=== PATIENT | female | born 1945 | race Caucasian/White ===

== ENCOUNTER 2016-10-28 12:53 | Observation (INO) | payer MEDICARE, MEDICAID ==
[2016-10-28] MEDS ORDERED: NORMAL SALINE 250 ML IV PRN ×4 (13:13→18:57)
--- NOTE | 2016-10-28 13:13 | ER Document Report ---
ED Medical Screen (RME) - General Chief Complaint: Anemia Stated Complaint: BLOOD TRANSFUSION Notes: This 71-year-old patient sent from her oncologist's office to get a blood transfusion for hemoglobin of 5.1 I have greeted and performed a rapid initial assessment of this patient. A comprehensive ED assessment and evaluation of the patient, analysis of test results and completion of the medical decision making process will be conducted by additional ED providers. TRAVEL OUTSIDE OF THE [place] IN LAST 30 DAYS: No - Related Data Allergies/Adverse Reactions: Heparin Analogues [Heparin Agents] Allergy (Verified 10/28/16 12:56) latex [Latex] Allergy (Verified 10/28/16 12:56) Sulfa (Sulfonamide Antibiotics) Allergy (Verified 10/28/16 12:56) Past Medical History - Past Medical History Cardiac Medical History: Reports: Hx Congestive Heart Failure, Hx Coronary Artery Disease, Hx Heart Attack - x2, stents x6, Hx Hypercholesterolemia, Hx Hypertension Pulmonary Medical History: Reports: Hx Bronchitis, Hx COPD Renal/ Medical History: Reports: Hx Kidney Stones. Denies: Hx Peritoneal Dialysis GI Medical History: Reports: Hx Gastroesophageal Reflux Disease Musculoskeltal Medical History: Reports Hx Arthritis Psychiatric Medical History: Denies: Hx Depression Past Surgical History: Reports: Hx Abdominal Surgery - GIB fixation x2, Hx Appendectomy, Hx Cardiac Catheterization, Hx Cardiac Surgery - CABG, Hx Coronary Artery Bypass Graft, Hx Coronary Stent, Hx Vascular Surgery - 7 stents - Immunizations Immunizations up to date: No Hx Diphtheria, Pertussis, Tetanus Vaccination: No Physical Exam - Vital signs Vitals: Temp Pulse Resp BP Pulse Ox 98.4 F 91 16 126/63 H 95 10/28/16 12:57 10/28/16 12:57 10/28/16 12:57 10/28/16 12:57 10/28/16 12:57 Course - Vital Signs Vital signs: Temp Pulse Resp BP Pulse Ox 98.4 F 91 16 126/63 H 95 10/28/16 12:57 10/28/16 12:57 10/28/16 12:57 10/28/16 12:57 10/28/16 12:57
[2016-10-28 14:04] LABS: ABSOLUTE EOSINOPHILS # (AUTO) 0.1 10^3/uL (0.0-0.6); ABSOLUTE LYMPHOCYTES (AUTO) 0.5 10^3/uL (0.5-4.7); ABSOLUTE MONOCYTES (AUTO) 0.5 10^3/uL (0.1-1.4); ABSOLUTE NEUT (AUTO) 3.6 10^3/uL (1.7-8.2); BASOPHILS % (AUTO) 0.7 % (0-2); EOSINOPHILS % (AUTO) 1.8 % (0-6); HEMATOCRIT 17.9 % (36.0-47.0); HGB HCT DIFFERENCE -1.1; LYMPHOCYTES % (AUTO) 11.6 % (13-45); MEAN CORPUSCULAR HEMOGLOBIN 27.3 pg (27.0-33.4); MEAN CORPUSCULAR HGB CONC 31.2 g/dL (32.0-36.0); MEAN CORPUSCULAR VOLUME 88 fl (80-97); MONOCYTES % (AUTO) 10.6 % (3-13); RED BLOOD COUNT 2.05 10^6/uL (3.72-5.28); RED CELL DISTRIBUTION WIDTH 20.1 % (11.5-14.0); SEGMENTED NEUTROPHILS % (AUTO) 75.3 % (42-78); WHITE BLOOD COUNT 4.7 10^3/uL (4.0-10.5)
[2016-10-28 14:16] LABS: ALANINE AMINOTRANSFERASE 22 U/L (9-52); ALBUMIN 3.4 g/dL (3.5-5.0); ALKALINE PHOSPHATASE 89 U/L (38-126); ANION GAP 12 (5-19); ASPARTATE AMINO TRANSFERASE 21 U/L (14-36); BILIRUBIN,DIRECT 0.1 mg/dL (0.0-0.4); BILIRUBIN,TOTAL 0.3 mg/dL (0.2-1.3); BLOOD UREA NITROGEN 59 mg/dL (7-20); CARBON DIOXIDE 27 mmol/L (22-30); CHLORIDE 99 mmol/L (98-107); CREATININE RESULT 2.04 mg/dL (0.52-1.25); GLUCOSE 104 mg/dL (75-110); POTASSIUM 5.1 mmol/L (3.6-5.0); SODIUM 137.8 mmol/L (137-145); TOTAL PROTEIN 6.4 g/dL (6.3-8.2)
[2016-10-28 14:18] LABS: HEMOGLOBIN 5.6 g/dL (12.0-15.5)
--- NOTE | 2016-10-28 14:40 | ER Document Report ---
ED General <MONET DOCKERY - Last Filed: 10/28/16 17:56> - General Time seen by provider: 14:45 Mode of Arrival: Ambulatory Information source: Patient, Relative - spouse TRAVEL OUTSIDE OF THE [place] IN LAST 30 DAYS: No - HPI Onset: Other - see HPI note Similar symptoms previously: No Recently seen / treated by doctor: No <CHARLY TEJEDA - Last Filed: 10/28/16 22:57> - General Chief Complaint: Anemia Stated Complaint: BLOOD TRANSFUSION Notes: Patient is a 71-year-old female presenting to emergency Department for a blood transfusion. Patient has a history of GAVE's syndrome. Patient has received blood transfusions at this facility in the past as well as [facility]. Patient has been states this patient is transfusion dependent, and her last transfusion was about 5 weeks ago. Patient denies any nausea, vomiting, diarrhea, or recent falls. Patient has a history of CHF and COPD. Patient does not use oxygen all the time, but does have oxygen as well as nebulizer treatments at home to use as needed. Patient sees Dr. Zaidi. Patient's primary care physician is Dr. John Wooldridge. (CHARLY TEJEDA) - Related Data Allergies/Adverse Reactions: Heparin Analogues [Heparin Agents] Allergy (Verified 10/28/16 12:56) latex [Latex] Allergy (Verified 10/28/16 12:56) Sulfa (Sulfonamide Antibiotics) Allergy (Verified 10/28/16 12:56) Past Medical History - General Information source: Patient, Relative - spouse - Social History Smoking Status: Current Every Day Smoker Frequency of alcohol use: None Drug Abuse: None Family History: CAD, Hypertension Patient has suicidal ideation: No Patient has homicidal ideation: No - Past Medical History Cardiac Medical History: Reports: Hx Congestive Heart Failure, Hx Coronary Artery Disease, Hx Heart Attack - x2, stents x6, Hx Hypercholesterolemia, Hx Hypertension Pulmonary Medical History: Reports: Hx Bronchitis, Hx COPD Renal/ Medical History: Reports: Hx Kidney Stones GI Medical History: Reports: Hx Gastroesophageal Reflux Disease Musculoskeltal Medical History: Reports Hx Arthritis Past Surgical History: Reports: Hx Abdominal Surgery - GIB fixation x2, Hx Appendectomy, Hx Cardiac Catheterization, Hx Cardiac Surgery - CABG, Hx Coronary Artery Bypass Graft, Hx Coronary Stent, Hx Vascular Surgery - 7 stents - Immunizations Immunizations up to date: No Hx Diphtheria, Pertussis, Tetanus Vaccination: No Hx Pneumococcal Vaccination: 04/25/15 <CHARLY TEJEDA - Last Filed: 10/28/16 22:57> Review of Systems - Review of Systems Constitutional: See HPI EENT: No symptoms reported Cardiovascular: No symptoms reported Respiratory: No symptoms reported Gastrointestinal: No symptoms reported Genitourinary: No symptoms reported Female Genitourinary: No symptoms reported Musculoskeletal: No symptoms reported Skin: No symptoms reported Hematologic/Lymphatic: No symptoms reported Neurological/Psychological: See HPI -: Yes All other systems reviewed and negative <CHARLY TEJEDA - Last Filed: 10/28/16 22:57> Physical Exam <SARKISMONET - Last Filed: 10/28/16 17:56> - Vital signs Interpretation: Normal - General General appearance: Alert, Other - patient is very somulent and drowsy In distress: Mild - HEENT Head: Normocephalic, Atraumatic Eyes: Normal Pupils: PERRL Mucous membranes: Moist - Respiratory Respiratory status: No respiratory distress Chest status: Nontender Breath sounds: Normal Chest palpation: Normal - Cardiovascular Rhythm: Regular, Tachycardia Heart sounds: Normal auscultation Murmur: No - Abdominal Inspection: Normal Distension: Other - protuberant abdomen Bowel sounds: Normal Tenderness: Nontender Organomegaly: No organomegaly - Back Back: Normal, Nontender - Extremities General upper extremity: Normal inspection, Normal ROM, Normal strength General lower extremity: Normal inspection, Edema - 2+ pitting edema bilaterally which is baseline for the patient; Right leg has slightly more edema than the left, Normal ROM, Normal strength - Neurological Neuro grossly intact: Yes Cognition: Normal Orientation: AAOx4 [place] Coma Scale Eye Opening: Spontaneous Jeff Coma Scale Verbal: Oriented Jeff Coma Scale Motor: Obeys Commands [place] Coma Scale Total: 15 Speech: Normal - Psychological Associated symptoms: Normal affect, Normal mood - Skin Skin Temperature: Warm Skin Moisture: Dry <CHARLY TEJEDA - Last Filed: 10/28/16 22:57> - Vital signs Vitals: Temp Pulse Resp BP Pulse Ox 98.4 F 91 16 126/63 H 95 10/28/16 12:57 10/28/16 12:57 10/28/16 12:57 10/28/16 12:57 10/28/16 12:57 Course - Laboratory Result Diagrams: 10/28/16 13:45 10/28/16 13:45 <MONET DOCKERY - Last Filed: 10/28/16 17:56> - Laboratory Result Diagrams: 10/28/16 13:45 10/28/16 13:45 - Consults Dr. Johnson Time consulted: 17:55 <CHARLY TEJEDA - Last Filed: 10/28/16 22:57> - Re-evaluation Re-evalutation: 10/28/16 17:57 I personally performed the services described in the documentation, reviewed and edited the documentation which was dictated to my scribe in my presence, and it accurately records my words and actions. Patient presents emergency department from Dr. 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 She also has chronic pain for which she seen and treated for for that. She was had an endoscopy done 2-3 weeks ago at [facility] for active bleeding at that time her hemoglobin was 7 they chose not to transfer transfuse her she was postictal follow-up with Dr. Mata's office sooner but just got there today which point they alecia blood for hemoglobin of 5.1. She is tachycardic but not hypotensive has any effect the pain medication in her system which her states is baseline for her no other altered mental status responds appropriately on examination no acute active bleeding abdominal pain or tenderness spoke with the hospitalist transfusion his ensuing and she is being admitted for observation and further assessment. (MONET DOCKERY) - Vital Signs Vital signs: Temp Pulse Resp BP Pulse Ox 98.0 F 98 18 148/59 H 98 10/28/16 21:40 10/28/16 21:40 10/28/16 21:40 10/28/16 21:40 10/28/16 21:40 - Laboratory Laboratory results interpreted by me: 10/28/16 10/28/16 10/28/16 13:45 13:45 13:45 RBC 2.05 L Hgb 5.6 L Hct 17.9 L MCHC 31.2 L RDW 20.1 H Lymphocytes % 11.6 L Potassium 5.1 H BUN 59 H Creatinine 2.04 H Est GFR ( Amer) 29 L Est GFR (Non-Af Amer) 24 L Albumin 3.4 L Crossmatch See Detail - Consults Dr. Johnson Reason for consultation: 10/28/16 17:[address] Johnson for possible admission; patient will be admitted. (CHARLY TEJEDA) Discharge - Discharge Admitting Provider: Hospitalist Unit Admitted: Telemetry <MONET DOCKERY - Last Filed: 10/28/16 17:56> <CHARLY TEJEDA - Last Filed: 10/28/16 22:57> - Discharge Clinical Impression: anemia requiring transfusion Condition: Stable Disposition: ADMITTED OBSERVATION Scribe Documentation - Scribe Written by Scribe:: Charly Tejeda 10/28/16 18:12 acting as scribe for :: Sarkis <CHARLY TEJEDA - Last Filed: 10/28/16 22:57>
[2016-10-28] MEDS ORDERED: IPRATROPIUM/ALBUTEROL 0.5-2.5 MG/3 ML AMPUL NEB PRN (18:19)
[2016-10-28] MEDS ORDERED: ACETAMINOPHEN 325 MG TABLET PO PRN (18:19)
[2016-10-28] MEDS ORDERED: OXYCODONE-ACETAMINOPHEN 5-325 MG TABLET PO PRN (18:19)
[2016-10-28] MEDS ORDERED: ONDANSETRON HCL INJ/PF 4 MG/2 ML SDV IV PRN (18:19)
[2016-10-28] MEDS ORDERED: ONDANSETRON 4 MG TAB.RAPDIS PO PRN (18:19)
[2016-10-28] MEDS ORDERED: NITROGLYCERIN 0.4 MG/TAB 25 TAB/BOTTLE SL PRN (18:27)
--- NOTE | 2016-10-28 18:45 | PDOC H&P ---
History of Present Illness Admission Date/PCP: 10/28/16 18:04 MAEGAN PAIGE MD Patient complains of: Anemia. 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 She has a hemoglobin of 5.1. Patient has been transfusion dependent for years because of her chronic blood loss related to this. The patient reports that she does have dyspnea on exertion but denies any chest pain. She has a history of coronary artery disease as well as diastolic dysfunction. The patient reports that she has had some intermittent melanotic stools but none currently. She was last seen by her gastroneurologist 2 weeks ago in [place] and had an EGD at that time. The patient denies having any abdominal pain. She denies any orthopnea or PND. She is admitted for transfusion. Past Medical History Cardiac Medical History: Reports: Atrial Fibrillation, Congestive Heart Failure , Coronary Artery Disease, Myocardial Infarction - x2, stents x6, Hyperlipidema , Hypertension Pulmonary Medical History: Reports: Bronchitis, Chronic Obstructive Pulmonary Disease (COPD) EENT Medical History: Reports: None Neurological Medical History: Reports: None Endocrine Medical History: Reports: None Renal/ Medical History: Reports: Chronic Kidney Disease Malignancy Medical History: Reports: None GI Medical History: Reports: Gastroesophageal Reflux Disease, Other - Gastric antral vascular ectasia (GAVE) syndrome Musculoskeltal Medical History: Reports: Arthritis Psychiatric Medical History: Denies: Depression Hematology: Reports: Anemia, Bleeding Tendencies Infectious Medical History: Reports: None Past Surgical History Past Surgical History: Reports: Appendectomy, Cardiac Catheterization, Coronary Artery Bypass Graft, Coronary Stent, Vascular Surgery - 7 stents Social History Information Source: Patient Lives with: Spouse/Significant other Smoking Status: Current Every Day Smoker Frequency of Alcohol Use: None Hx Recreational Drug Use: No Drugs: None Hx Prescription Drug Abuse: No - Advance Directive Resuscitation Status: Do Not Resuscitate - Discussed with the patient and she reports that she requests to be a DO NOT RESUSCITATE. Surrogate healthcare decision maker:: Family History Family History: CAD, Hypertension Family History: Mother at age 71 with coronary artery disease. Father at age 29 in a coal mining accident Parental Family History Reviewed: Yes Children Family History Reviewed: No Sibling(s) Family History Reviewed.: No Medication/Allergy Home Medications: Aspirin [Ecotrin] 81 mg PO DAILY 03/14/15 Ferrous Sulfate [Iron] 325 mg PO BID 12/08/15 Hydrocodone Bit/Acetaminophen [Hydrocodon-Acetaminophn 10-325] 1 tab PO QIDP PRN 12/08/15 Isosorbide Mononitrate [Isosorbide Mononitrate ER] 60 mg PO BID 12/08/15 Metoprolol Tartrate 25 mg PO BID 12/08/15 Pantoprazole Sodium 40 mg PO BID 12/08/15 Rosuvastatin Calcium [Crestor 20 mg Tablet] 20 mg PO DAILY 12/08/15 Zolpidem Tartrate [Ambien] 10 mg PO HSP PRN 12/08/15 Benzonatate 1 cap PO TID 12/12/15 Dexlansoprazole [Dexilant 60 mg Capsule] 1 cap PO DAILY 12/12/15 Albuterol Sulfate [Albuterol Sulfate 2.5mg/3 mL] 2.5 mg IH Q6 PRN 12/16/15 Albuterol Sulfate [Proair Respiclick] 90 mcg IH Q6 PRN 12/16/15 Furosemide 80 mg PO QAM 12/16/15 Nitroglycerin [Nitrostat 0.4 mg (1/150 Gr) Tabs 25/Bottle] 25 tab SL PRN PRN Ondansetron HCl [Zofran 4 mg Tablet] 1 tab PO Q6 PRN 12/16/15 Diltiazem HCl [Cardizem Cd 120 mg Capsule] 120 mg PO DAILY #30 cap.sr.24h Ergocalciferol (Vitamin D2) [Drisdol 50,000 unit (1.25MG) Capsule] 50,000 unit PO Valente@1000 #10 capsule 12/21/15 Furosemide [Lasix 40 mg Tablet] 40 mg PO BID #60 tablet 12/21/15 Gabapentin [Neurontin] 600 mg PO BID #0 12/21/15 Metolazone [Zaroxolyn 2.5 mg Tablet] 2.5 mg PO DAILY #30 tablet 12/21/15 Metoprolol Succinate [Toprol Xl 25 mg Tab.sr] 25 mg PO Q12 #60 tab.sr.24h Oxycodone HCl [Oxy-Ir 5 mg Tablet] 5 mg PO Q4H PRN #15 tablet 04/03/16 Allergies/Adverse Reactions: Heparin Analogues [Heparin Agents] Allergy (Verified 10/28/16 12:56) latex [Latex] Allergy (Verified 10/28/16 12:56) Sulfa (Sulfonamide Antibiotics) Allergy (Verified 10/28/16 12:56) Review of Systems Constitutional: ABSENT: chills, fever(s), headache(s), weight gain, weight loss Eyes: ABSENT: visual disturbances Ears: ABSENT: hearing changes Cardiovascular: PRESENT: dyspnea on exertion, edema, palpitations. ABSENT: chest pain, orthropnea Respiratory: PRESENT: dyspnea. ABSENT: cough, hemoptysis, sputum Gastrointestinal: PRESENT: melena. ABSENT: abdominal pain, coffee ground emesis , constipation, dysphagia, heartburn, nausea, vomiting Musculoskeletal: ABSENT: joint swelling Integumentary: ABSENT: rash, wounds Neurological: ABSENT: abnormal gait, abnormal speech, confusion, dizziness, focal weakness, syncope Psychiatric: ABSENT: anxiety, depression Physical Exam Vital Signs: Temp Pulse Resp BP Pulse Ox 98.3 F 95 18 123/54 L 95 10/28/16 18:01 10/28/16 16:10 10/28/16 18:01 10/28/16 18:01 10/28/16 18:01 General appearance: PRESENT: no acute distress, well-developed, well-nourished Head exam: PRESENT: atraumatic, normocephalic Eye exam: PRESENT: conjunctiva pink, EOMI, PERRLA. ABSENT: scleral icterus Ear exam: PRESENT: normal external ear exam Mouth exam: PRESENT: moist, tongue midline Neck exam: ABSENT: carotid bruit, JVD, lymphadenopathy, thyromegaly Respiratory exam: PRESENT: clear to auscultation henry. ABSENT: rales, rhonchi, wheezes Cardiovascular exam: PRESENT: irregular rhythm. ABSENT: diastolic murmur, rubs , systolic murmur Vascular exam: PRESENT: normal capillary refill GI/Abdominal exam: PRESENT: normal bowel sounds, soft. ABSENT: distended, guarding, mass, organolmegaly, rebound, tenderness Rectal exam: PRESENT: deferred Extremities exam: PRESENT: pedal edema, +1 edema. ABSENT: calf tenderness, clubbing Neurological exam: PRESENT: alert, awake, oriented to person, oriented to place , oriented to time, oriented to situation, CN II-XII grossly intact. ABSENT: motor sensory deficit Psychiatric exam: PRESENT: appropriate affect Skin exam: PRESENT: dry, erythema - Mild erythema on bilateral anterior shins, intact, warm. ABSENT: cyanosis, rash Assessment & Plan - Diagnosis (1) GI bleed Is this a current diagnosis for this admission?: YesPlan: The patient has a history of gastric antral vascular ectasia(GAVE). She is is fusion dependent. Her hemoglobin a week ago was 7 today is 5.1. She does relate having some intermittent melanotic stools. The patient's gastrologist is in [place]. We will transfuse 2 units of packed red blood cells and repeat her hemoglobin. As long she is above 7 she is usually asymptomatic. Patient artery is on a proton pump inhibitor and we will continue with present. She has some dyspnea on exertion but denies any chest pain. She does have a history of coronary artery disease. Given her history of congestive heart failure she also will get Lasix. (2) Chronic anemia Is this a current diagnosis for this admission?: YesPlan: The patient has chronic GI blood loss. (3) Coronary artery disease Is this a current diagnosis for this admission?: YesPlan: Patient denies any chest pain currently even with a hemoglobin of 5.1. She is on Imdur and we will continue with that. (4) Hyperlipidemia Is this a current diagnosis for this admission?: YesPlan: Patient has been on Crestor as an outpatient (5) Hypertension Is this a current diagnosis for this admission?: YesPlan: She has been on Zaroxolyn, Lasix, diltiazem, metoprolol for her blood pressure (6) Atrial fibrillation Is this a current diagnosis for this admission?: YesPlan: Patient has been on diltiazem and Toprol for rate control (7) Chronic renal failure Is this a current diagnosis for this admission?: YesPlan: The patient's creatinine is at her baseline. She has stage IV chronic renal failure. (8) COPD (chronic obstructive pulmonary disease) Is this a current diagnosis for this admission?: YesPlan: The patient continues to smoke. We'll give nebulizers as needed. (9) Congestive heart failure Qualifiers: Congestive heart failure type: diastolic Congestive heart failure chronicity: acute on chronic Qualified Code(s): I50.33 - Acute on chronic diastolic (congestive) heart failure Is this a current diagnosis for this admission?: YesPlan: Patient has a history of diastolic dysfunction. She appears to be euvolemic at this time. We'll watch closely given the fact that we are transfusing blood products. (10) Do not resuscitate Is this a current diagnosis for this admission?: YesPlan: This was discussed at length with the patient and she requests to be a DO NOT RESUSCITATE. - Time Time Spent: 30 to 50 Minutes - Plan Summary Plan Summary: We'll admit as observation as I anticipate the patient will be transfused and then sent home tomorrow.
[2016-10-29 04:24] LABS: ABSOLUTE EOSINOPHILS # (AUTO) 0.1 10^3/uL (0.0-0.6); ABSOLUTE LYMPHOCYTES (AUTO) 0.6 10^3/uL (0.5-4.7); ABSOLUTE MONOCYTES (AUTO) 0.5 10^3/uL (0.1-1.4); ABSOLUTE NEUT (AUTO) 2.9 10^3/uL (1.7-8.2); BASOPHILS % (AUTO) 0.6 % (0-2); EOSINOPHILS % (AUTO) 3.3 % (0-6); HEMATOCRIT 26.1 % (36.0-47.0); HGB HCT DIFFERENCE -0.6; LYMPHOCYTES % (AUTO) 14.6 % (13-45); MEAN CORPUSCULAR HEMOGLOBIN 27.5 pg (27.0-33.4); MEAN CORPUSCULAR HGB CONC 32.5 g/dL (32.0-36.0); MEAN CORPUSCULAR VOLUME 85 fl (80-97); MONOCYTES % (AUTO) 11.3 % (3-13); RED BLOOD COUNT 3.09 10^6/uL (3.72-5.28); SEGMENTED NEUTROPHILS % (AUTO) 70.2 % (42-78); WHITE BLOOD COUNT 4.1 10^3/uL (4.0-10.5)
[2016-10-29 04:37] LABS: HEMOGLOBIN 8.5 g/dL (12.0-15.5)
[2016-10-29 04:42] LABS: ANION GAP 13 (5-19); BLOOD UREA NITROGEN 56 mg/dL (7-20); CALCIUM 8.5 mg/dL (8.4-10.2); CARBON DIOXIDE 24 mmol/L (22-30); CHLORIDE 103 mmol/L (98-107); CREATININE RESULT 2.07 mg/dL (0.52-1.25); GLUCOSE 105 mg/dL (75-110); POTASSIUM 4.6 mmol/L (3.6-5.0); SODIUM 140.4 mmol/L (137-145)
[2016-10-29] MEDS ORDERED: LANSOPRAZOLE 30 MG TAB.RAP.DR PO SCH (06:00)
[2016-10-29] MEDS ORDERED: FUROSEMIDE 80 MG TABLET PO SCH (08:00)
[2016-10-29 09:20] LABS: ABSOLUTE EOSINOPHILS # (AUTO) 0.1 10^3/uL (0.0-0.6); ABSOLUTE LYMPHOCYTES (AUTO) 0.5 10^3/uL (0.5-4.7); ABSOLUTE MONOCYTES (AUTO) 0.4 10^3/uL (0.1-1.4); ABSOLUTE NEUT (AUTO) 2.8 10^3/uL (1.7-8.2); BASOPHILS % (AUTO) 0.5 % (0-2); EOSINOPHILS % (AUTO) 3.4 % (0-6); HEMATOCRIT 26.5 % (36.0-47.0); HEMOGLOBIN 8.5 g/dL (12.0-15.5); LYMPHOCYTES % (AUTO) 12.4 % (13-45); MEAN CORPUSCULAR HEMOGLOBIN 27.5 pg (27.0-33.4); MEAN CORPUSCULAR HGB CONC 32.1 g/dL (32.0-36.0); MEAN CORPUSCULAR VOLUME 86 fl (80-97); MONOCYTES % (AUTO) 11.1 % (3-13); RED BLOOD COUNT 3.09 10^6/uL (3.72-5.28); RED CELL DISTRIBUTION WIDTH 17.6 % (11.5-14.0); SEGMENTED NEUTROPHILS % (AUTO) 72.6 % (42-78); WHITE BLOOD COUNT 3.8 10^3/uL (4.0-10.5)
[2016-10-29 09:30] VITALS: BP 150/61
[2016-10-29] MEDS ORDERED: ISOSORBIDE MONONITRATE 30 MG TAB.ER.24H PO SCH ×2 (10:00)
--- NOTE | 2016-10-29 10:15 | PDOC DISCHARGE SUMMARY ---
General - Admit/Disc Date/PCP Admission Date/Primary Care Provider: 10/28/16 18:19 MAEGAN PAIGE MD Discharge Date: 10/29/16 - Discharge Diagnosis (1) GI bleed Is this a current diagnosis for this admission?: YesSummary: Secondary to gastric antral vascular ectasia (GAVE). Transfuse 3 units packed red blood cells. (2) Chronic anemia Is this a current diagnosis for this admission?: Yes (3) Coronary artery disease Is this a current diagnosis for this admission?: Yes (4) Hyperlipidemia Is this a current diagnosis for this admission?: Yes (5) Hypertension Is this a current diagnosis for this admission?: Yes (6) Atrial fibrillation Is this a current diagnosis for this admission?: Yes (7) Chronic renal failure Is this a current diagnosis for this admission?: Yes (8) COPD (chronic obstructive pulmonary disease) Is this a current diagnosis for this admission?: Yes (9) Congestive heart failure Is this a current diagnosis for this admission?: Yes (10) Do not resuscitate Is this a current diagnosis for this admission?: Yes - Additional Information Resuscitation Status: Do Not Resuscitate Discharge Diet: Cardiac Discharge Activity: Activity As Tolerated Home Medications: Albuterol Sulfate [Albuterol Sulfate 2.5mg/3 mL] 2.5 mg IH Q6HP PRN 10/29/16 Albuterol Sulfate [Proair Respiclick] 90 mcg IH Q6HP PRN 10/29/16 Dexlansoprazole [Dexilant 60 mg Capsule] 60 mg PO DAILY 10/29/16 Diltiazem HCl [Cardizem Cd 120 mg Capsule] 120 mg PO DAILY 10/29/16 Ferrous Sulfate [Feosol 325 mg Tablet] 325 mg PO BID 10/29/16 Gabapentin [Neurontin] 600 mg PO BIDP PRN 10/29/16 Hydrocodone/Acetaminophen [[place] 10-325 mg Tablet] 1 tab PO QIDP PRN 10/29/16 Metolazone [Zaroxolyn 2.5 mg Tablet] 2.5 mg PO DAILY 10/29/16 Metoprolol Succinate [Toprol Xl 25 mg Tab.sr] 25 mg PO Q12 10/29/16 Nitroglycerin [Nitrostat 0.4 mg (1/150 Gr) Tabs 25/Bottle] 25 tab SL PRN PRN 01/09 Ondansetron HCl [Zofran] 4 mg PO Q6HP PRN 10/29/16 Pantoprazole Sodium [Protonix] 40 mg PO BID 10/29/16 Rosuvastatin Calcium [Crestor 20 mg Tablet] 20 mg PO DAILY 10/29/16 Torsemide [Demadex 20 mg Tablet] 60 mg PO TID 10/29/16 Torsemide [Demadex 20 mg Tablet] 80 mg PO BID 10/29/16 Zolpidem Tartrate [Ambien] 10 mg PO HSP PRN 10/29/16 History of Present Illness History of Present Illness: SHIRLEY BROOKS is a 71 year old female with a history of GAVE syndrome ( gastric antral vascular ectasia) who presents with anemia. She has a hemoglobin of 5.1. Patient has been transfusion dependent for years because of her chronic blood loss related to this. The patient reports that she does have dyspnea on exertion but denies any chest pain. She has a history of coronary artery disease as well as diastolic dysfunction. The patient reports that she has had some intermittent melanotic stools but none currently. She was last seen by her gastroneurologist 2 weeks ago in [place] and had an EGD at that time. The patient denies having any abdominal pain. She denies any orthopnea or PND. She is admitted for transfusion. Hospital Course Hospital Course: 71-year-old female with a long history of recurrent GI bleeding secondary to gastric antral vascular ectasia. The patient had no evidence for active bleeding and had an EGD 2 weeks ago by her pet care worker in [place]. She was admitted and transfused 3 units packed red blood cells and her hemoglobin came up to 8 from 5.1 on admission. She was asymptomatic and felt stable for discharge to home. All of other medical problems were stable and unchanged during this hospitalization. Physical Exam Vital Signs: Temp Pulse Resp BP Pulse Ox 97.9 F 83 18 150/61 H 96 10/29/16 09:00 10/29/16 09:00 10/29/16 09:00 10/29/16 09:00 10/29/16 09:00 Intake & Output 10/28/16 10/29/16 10/30/16 06:59 06:59 06:59 Intake Total 1350 Balance 1350 Weight 75.2 kg General appearance: PRESENT: no acute distress Eye exam: PRESENT: conjunctiva pink. ABSENT: scleral icterus Mouth exam: PRESENT: moist, tongue midline Neck exam: ABSENT: JVD Respiratory exam: PRESENT: clear to auscultation henry. ABSENT: rales, rhonchi, wheezes Cardiovascular exam: PRESENT: RRR. ABSENT: diastolic murmur, rubs, systolic murmur GI/Abdominal exam: PRESENT: normal bowel sounds, soft. ABSENT: distended, guarding, mass, organolmegaly, rebound, tenderness Extremities exam: ABSENT: calf tenderness, clubbing, pedal edema Neurological exam: PRESENT: alert, awake, oriented to person, oriented to place , oriented to time, oriented to situation, CN II-XII grossly intact. ABSENT: motor sensory deficit Psychiatric exam: PRESENT: appropriate affect Skin exam: PRESENT: dry, intact, warm. ABSENT: cyanosis, rash Results Laboratory Results: 10/29/16 08:39 10/29/16 04:07 10/29/16 10/29/16 10/29/16 04:07 04:07 08:39 WBC 4.1 3.8 L RBC 3.09 L 3.09 L Hgb 8.5 L D 8.5 L Hct 26.1 L 26.5 L MCV 85 86 MCH 27.5 27.5 MCHC 32.5 32.1 RDW 17.0 H 17.6 H Plt Count 136 L 127 L Seg Neutrophils % 70.2 72.6 Lymphocytes % 14.6 12.4 L Monocytes % 11.3 11.1 Eosinophils % 3.3 3.4 Basophils % 0.6 0.5 Absolute Neutrophils 2.9 2.8 Absolute Lymphocytes 0.6 0.5 Absolute Monocytes 0.5 0.4 Absolute Eosinophils 0.1 0.1 Absolute Basophils 0.0 0.0 Sodium 140.4 Potassium 4.6 Chloride 103 Carbon Dioxide 24 Anion Gap 13 BUN 56 H Creatinine 2.07 H Est GFR ( Amer) 29 L Est GFR (Non-Af Amer) 24 L Glucose 105 Calcium 8.5 Qualifiers PATEINT BEING DISCHARGED WITH ANY OF THE FOLLOWING DIAGNOSIS?: No Plan Discharge Plan: Discharged home. Will follow-up with primary care in 1 week. Time Spent: Less than 30 Minutes
== END 2016-10-29 09:37 | disposition home or self-care (01) ==
LOC: ER 12:53 → UNDOADMOB 18:04 → EH 18:04 → UNDOADMOB 18:19 → 5 20:47
PROVIDERS: ADMIT Internal Medicine; ATTEND Internal Medicine
PROC: 30233N1 Transfusion of Nonautologous Red Blood Cells into Peripheral Vein, Percutaneous Approach (ICD-10-PCS; principal; 2016-10-28)
DX: D50.8 Other iron deficiency anemias (principal); K92.2 Gastrointestinal hemorrhage, unspecified; K31.819 Angiodysplasia of stomach and duodenum without bleeding; I25.10 Atherosclerotic heart disease of native coronary artery without angina pectoris; E78.5 Hyperlipidemia, unspecified; I48.91 Unspecified atrial fibrillation; I13.0 Hypertensive heart and chronic kidney disease with heart failure and stage 1 through stage 4 chronic kidney disease, or unspecified chronic kidney disease; N18.9 Chronic kidney disease, unspecified; I50.9 Heart failure, unspecified; J44.9 Chronic obstructive pulmonary disease, unspecified; Z66 Do not resuscitate; I25.2 Old myocardial infarction; F17.200 Nicotine dependence, unspecified, uncomplicated
CPT/HCPCS: 99285; 86900; 86901; 36415 ×2; 36430; 86850; 85025 ×2; 80048; 80053; 86920; G0378 ×3; P9016 ×2; A9270 ×2; J2405

== ENCOUNTER 2016-11-09 15:11 | Emergency (ER) | payer MEDICARE, MEDICAID ==
[2016-11-09] MEDS ORDERED: NORMAL SALINE 250 ML IV PRN (15:48)
--- NOTE | 2016-11-09 15:51 | ER Document Report ---
ED Medical Screen (RME) - General Chief Complaint: Chest Pain > 30 Stated Complaint: SHORTNESS OF BREATH Notes: 71-year-old female patient with gastric antral ectasia and GI bleed was admitted here on 10/28/2016 transfused. Lab work done today showed a hemoglobin of 5.1 so she returned to the emergency room and is supposed to be transferred to her GI doc in [place]. I have greeted and performed a rapid initial assessment of this patient. A comprehensive ED assessment and evaluation of the patient, analysis of test results and completion of the medical decision making process will be conducted by additional ED providers. TRAVEL OUTSIDE OF THE [place] IN LAST 30 DAYS: No - Related Data Allergies/Adverse Reactions: Heparin Analogues [Heparin Agents] Allergy (Verified 10/28/16 12:56) latex [Latex] Allergy (Verified 10/28/16 12:56) Sulfa (Sulfonamide Antibiotics) Allergy (Verified 10/28/16 12:56) Past Medical History - Past Medical History Cardiac Medical History: Reports: Hx Atrial Fibrillation, Hx Congestive Heart Failure, Hx Coronary Artery Disease, Hx Heart Attack - x2, stents x6, Hx Hypercholesterolemia, Hx Hypertension Pulmonary Medical History: Reports: Hx Bronchitis, Hx COPD Renal/ Medical History: Reports: Hx Kidney Stones. Denies: Hx Peritoneal Dialysis GI Medical History: Reports: Hx Gastroesophageal Reflux Disease Musculoskeltal Medical History: Reports Hx Arthritis Psychiatric Medical History: Denies: Hx Depression Past Surgical History: Reports: Hx Abdominal Surgery - GIB fixation x2, Hx Appendectomy, Hx Cardiac Catheterization, Hx Cardiac Surgery - CABG, Hx Coronary Artery Bypass Graft, Hx Coronary Stent, Hx Vascular Surgery - 7 stents - Immunizations Immunizations up to date: No Hx Diphtheria, Pertussis, Tetanus Vaccination: No Physical Exam - Vital signs Vitals: Temp Pulse Resp BP Pulse Ox 98.2 F 80 18 142/49 H 93 11/09/16 15:29 11/09/16 15:29 11/09/16 15:29 11/09/16 15:29 11/09/16 15:29 Course - Vital Signs Vital signs: Temp Pulse Resp BP Pulse Ox 98.2 F 80 18 142/49 H 93 11/09/16 15:29 11/09/16 15:29 11/09/16 15:29 11/09/16 15:29 11/09/16 15:29
[2016-11-09 16:45] LABS: ABSOLUTE EOSINOPHILS # (AUTO) 0.1 10^3/uL (0.0-0.6); ABSOLUTE LYMPHOCYTES (AUTO) 0.4 10^3/uL (0.5-4.7); ABSOLUTE MONOCYTES (AUTO) 0.4 10^3/uL (0.1-1.4); ABSOLUTE NEUT (AUTO) 2.8 10^3/uL (1.7-8.2); BASOPHILS % (AUTO) 0.6 % (0-2); EOSINOPHILS % (AUTO) 1.8 % (0-6); HEMATOCRIT 17.6 % (36.0-47.0); HGB HCT DIFFERENCE -0.8; LYMPHOCYTES % (AUTO) 10.2 % (13-45); MEAN CORPUSCULAR HEMOGLOBIN 28.1 pg (27.0-33.4); MEAN CORPUSCULAR HGB CONC 31.6 g/dL (32.0-36.0); MEAN CORPUSCULAR VOLUME 89 fl (80-97); MONOCYTES % (AUTO) 10.5 % (3-13); RED BLOOD COUNT 1.98 10^6/uL (3.72-5.28); RED CELL DISTRIBUTION WIDTH 17.8 % (11.5-14.0); SEGMENTED NEUTROPHILS % (AUTO) 76.9 % (42-78); WHITE BLOOD COUNT 3.6 10^3/uL (4.0-10.5)
--- NOTE | 2016-11-09 16:47 | ER Document Report ---
ED GI/ - General Chief Complaint: Chest Pain > 30 Stated Complaint: SHORTNESS OF BREATH Time seen by provider: 16:46 Mode of Arrival: Ambulatory Information source: Patient TRAVEL OUTSIDE OF THE [place] IN LAST 30 DAYS: No - HPI Patient complains to provider of: Diarrhea, Other - Melanotic stools Onset: Other - Chronic Timing/Duration: Waxing and waning Associated symptoms: Blood in stool Exacerbated by: Denies Relieved by: Denies Similar symptoms previously: Yes Recently seen / treated by doctor: Yes Notes: 11/09/16 17:36 Patient is a 71-year-old female who presents to the emergency room for complaints of anemia with a hemoglobin of 5.1 on outpatient labs, patient has a history of gastric antral vascular ectasia, requires frequent transfusions and endoscopy, she was most recently scoped approximately one month ago by her production quality manager Dr. Pickett in [facility], she reports having melanotic stools frequently, denies any abdominal pain, no vomiting, no fever, she does have a wet but nonproductive cough as well, patient's who is at bedside reports that he spoke with patient's production quality manager earlier today who requested that patient be transferred to [facility] for further intervention - Related Data Allergies/Adverse Reactions: Heparin Analogues [Heparin Agents] Allergy (Verified 10/28/16 12:56) latex [Latex] Allergy (Verified 10/28/16 12:56) Sulfa (Sulfonamide Antibiotics) Allergy (Verified 10/28/16 12:56) Past Medical History - General Information source: Patient - Social History Smoking Status: Never Smoker Chew tobacco use (# tins/day): No Frequency of alcohol use: None Drug Abuse: None Family History: CAD, Hypertension Patient has suicidal ideation: No Patient has homicidal ideation: No - Past Medical History Cardiac Medical History: Reports: Hx Atrial Fibrillation, Hx Congestive Heart Failure, Hx Coronary Artery Disease, Hx Heart Attack - x2, stents x6, Hx Hypercholesterolemia, Hx Hypertension Pulmonary Medical History: Reports: Hx Bronchitis, Hx COPD Renal/ Medical History: Reports: Hx Kidney Stones. Denies: Hx Peritoneal Dialysis GI Medical History: Reports: Hx Gastroesophageal Reflux Disease Musculoskeltal Medical History: Reports Hx Arthritis Psychiatric Medical History: Denies: Hx Depression Past Surgical History: Reports: Hx Abdominal Surgery - GIB fixation x2, Hx Appendectomy, Hx Cardiac Catheterization, Hx Cardiac Surgery - CABG, Hx Coronary Artery Bypass Graft, Hx Coronary Stent, Hx Vascular Surgery - 7 stents - Immunizations Immunizations up to date: No Hx Diphtheria, Pertussis, Tetanus Vaccination: No Hx Pneumococcal Vaccination: 04/25/15 Review of Systems - Review of Systems Constitutional: No symptoms reported EENT: No symptoms reported Cardiovascular: No symptoms reported Respiratory: Cough Gastrointestinal: See HPI Genitourinary: No symptoms reported Female Genitourinary: No symptoms reported Musculoskeletal: No symptoms reported Skin: No symptoms reported Hematologic/Lymphatic: No symptoms reported Neurological/Psychological: No symptoms reported -: Yes All other systems reviewed and negative Physical Exam - Vital signs Vitals: Temp Pulse Resp BP Pulse Ox 98.2 F 80 18 142/49 H 93 11/09/16 15:29 11/09/16 15:29 11/09/16 15:29 11/09/16 15:29 11/09/16 15:29 Interpretation: Normal - General General appearance: Appears well, Alert In distress: None - HEENT Head: Normocephalic, Atraumatic Eyes: Normal Conjunctiva: Normal Extraocular movements intact: Yes Eyelashes: Normal Pupils: PERRL Pharynx: Normal Neck: Normal - Respiratory Respiratory status: No respiratory distress Chest status: Nontender Breath sounds: Normal Chest palpation: Normal - Cardiovascular Rhythm: Regular Heart sounds: Normal auscultation Murmur: No - Abdominal Inspection: Normal Distension: Distended Bowel sounds: Normal Tenderness: Nontender - Rectal Tenderness: No Stool: Black - Back Back: Normal, Nontender - Extremities General upper extremity: Normal inspection, Nontender, Normal color, Normal ROM , Normal temperature General lower extremity: Normal inspection, Nontender, Edema, Normal color, Normal ROM, Normal temperature. No: Jessy's sign - Neurological Neuro grossly intact: Yes Cognition: Normal Orientation: AAOx4 [place] Coma Scale Eye Opening: Spontaneous [place] Coma Scale Verbal: Oriented [place] Coma Scale Motor: Obeys Commands [place] Coma Scale Total: 15 Speech: Normal Motor strength normal: LUE, RUE, LLE, RLE Sensory: Normal - Psychological Associated symptoms: Normal affect, Normal mood - Skin Skin Temperature: Warm Skin Moisture: Dry Skin Color: Pale Course - Re-evaluation Re-evalutation: 11/09/16 16:46 I placed a call to [facility], spoke with Chikis in the transfer center, requested callback from Dr. Pickett for likely transfer of patient 11/09/16 17:38 Patient was discussed with hospitalist, Dr. Conway who accepts patient for transfer, transfer center states that Dr. Pickett his early callback and confirm that he would like patient to be transferred to [facility] under hospitalist service 11/09/16 19:50 Patient resting comfortably with stable vital signs, blood transfusion has been started, she is awaiting a bed assignment at [facility] at which point time she will be transferred, patient remains stable for transport - Vital Signs Vital signs: Temp Pulse Resp BP Pulse Ox 98.0 F 83 16 128/58 H 91 L 11/09/16 19:30 11/09/16 19:30 11/09/16 19:30 11/09/16 19:30 11/09/16 19:30 - Laboratory Result Diagrams: 11/09/16 16:27 11/09/16 16:27 Laboratory results interpreted by me: 11/09/16 11/09/16 11/09/16 16:27 16:27 16:27 WBC 3.6 L RBC 1.98 L Hgb 5.6 L Hct 17.6 L MCHC 31.6 L RDW 17.8 H Plt Count 140 L Lymphocytes % 10.2 L Absolute Lymphocytes 0.4 L PT 15.5 H Potassium 2.5 L* Chloride 92 L Carbon Dioxide 31 H BUN 65 H Creatinine 1.62 H Est GFR ( Amer) 38 L Est GFR (Non-Af Amer) 32 L Total Protein 6.0 L Albumin 3.2 L Crossmatch 11/09/16 16:27 WBC RBC Hgb Hct MCHC RDW Plt Count Lymphocytes % Absolute Lymphocytes PT Potassium Chloride Carbon Dioxide BUN Creatinine Est GFR ( Amer) Est GFR (Non-Af Amer) Total Protein Albumin Crossmatch See Detail Discharge - Discharge Clinical Impression: Chronic anemia GI bleed Qualifiers: GI bleed type/associated pathology: melena Qualified Code(s): K92.1 - Melena Condition: Fair Disposition: [facility]
[2016-11-09 16:50] LABS: PROTHROMBIN TIME 15.5 SEC (11.4-15.4)
[2016-11-09 16:53] LABS: HEMOGLOBIN 5.6 g/dL (12.0-15.5)
[2016-11-09 17:00] LABS: ALANINE AMINOTRANSFERASE 23 U/L (9-52); ALBUMIN 3.2 g/dL (3.5-5.0); ALKALINE PHOSPHATASE 89 U/L (38-126); ANION GAP 16 (5-19); ASPARTATE AMINO TRANSFERASE 25 U/L (14-36); BILIRUBIN,DIRECT 0.1 mg/dL (0.0-0.4); BILIRUBIN,TOTAL 0.3 mg/dL (0.2-1.3); BLOOD UREA NITROGEN 65 mg/dL (7-20); CALCIUM 8.7 mg/dL (8.4-10.2); CARBON DIOXIDE 31 mmol/L (22-30); CHLORIDE 92 mmol/L (98-107); CREATININE RESULT 1.62 mg/dL (0.52-1.25); GLUCOSE 104 mg/dL (75-110); SODIUM 138.6 mmol/L (137-145)
[2016-11-09 17:05] LABS: POTASSIUM 2.5 mmol/L (3.6-5.0)
[2016-11-09] MEDS ORDERED: POTASSIUM CHLORIDE 10 MEQ TABLET.SA PO ONE (17:08)
[2016-11-09] MEDS: POTASSI CL 20 MEQ/50 ML RIDER 50 ML IV SCH ×2 (17:30→19:00)
[2016-11-09 18:10] LABS: APPEARANCE,URINE CLEAR; BILIRUBIN,URINE NEGATIVE (NEGATIVE); GLUCOSE, URINE NEGATIVE (NEGATIVE); KETONES,URINE NEGATIVE (NEGATIVE); LEUKOCYTE ESTERASE,URINE NEGATIVE (NEGATIVE); NITRITE,URINE NEGATIVE (NEGATIVE); PROTEIN,URINE NEGATIVE (NEGATIVE); URINE SPECIFIC GRAVITY 1.005; UROBILINOGEN,URINE NEGATIVE mg/dL (<2.0)
--- NOTE | 2016-11-09 18:52 | EKG REPORT ---
SEVERITY:- ABNORMAL ECG - ATRIAL FIBRILLATION RIGHT BUNDLE BRANCH BLOCK BORDERLINE ST DEPRESSION, LATERAL LEADS : Confirmed by: Melvin Zamora 09-Nov-2016 18:52:07
[2016-11-09] MEDS ORDERED: GABAPENTIN 300 MG CAPSULE PO ONE (21:00)
[2016-11-10 00:30] LABS: ABSOLUTE EOSINOPHILS # (AUTO) 0.1 10^3/uL (0.0-0.6); ABSOLUTE LYMPHOCYTES (AUTO) 0.4 10^3/uL (0.5-4.7); ABSOLUTE MONOCYTES (AUTO) 0.4 10^3/uL (0.1-1.4); ABSOLUTE NEUT (AUTO) 2.5 10^3/uL (1.7-8.2); BASOPHILS % (AUTO) 1.2 % (0-2); EOSINOPHILS % (AUTO) 2.7 % (0-6); HEMATOCRIT 22.4 % (36.0-47.0); HGB HCT DIFFERENCE -0.8; LYMPHOCYTES % (AUTO) 12.8 % (13-45); MEAN CORPUSCULAR HEMOGLOBIN 28.1 pg (27.0-33.4); MEAN CORPUSCULAR VOLUME 88 fl (80-97); MONOCYTES % (AUTO) 10.3 % (3-13); RED BLOOD COUNT 2.54 10^6/uL (3.72-5.28); RED CELL DISTRIBUTION WIDTH 17.3 % (11.5-14.0); WHITE BLOOD COUNT 3.4 10^3/uL (4.0-10.5)
[2016-11-10 00:38] LABS: HEMOGLOBIN 7.2 g/dL (12.0-15.5)
[2016-11-10 07:04] LABS: ABSOLUTE EOSINOPHILS # (AUTO) 0.1 10^3/uL (0.0-0.6); ABSOLUTE LYMPHOCYTES (AUTO) 0.4 10^3/uL (0.5-4.7); ABSOLUTE MONOCYTES (AUTO) 0.3 10^3/uL (0.1-1.4); ABSOLUTE NEUT (AUTO) 2.1 10^3/uL (1.7-8.2); BASOPHILS % (AUTO) 0.7 % (0-2); EOSINOPHILS % (AUTO) 4.2 % (0-6); HEMATOCRIT 21.1 % (36.0-47.0); HGB HCT DIFFERENCE -0.4; MEAN CORPUSCULAR HEMOGLOBIN 28.8 pg (27.0-33.4); MEAN CORPUSCULAR HGB CONC 32.7 g/dL (32.0-36.0); MEAN CORPUSCULAR VOLUME 88 fl (80-97); MONOCYTES % (AUTO) 10.3 % (3-13); RED BLOOD COUNT 2.39 10^6/uL (3.72-5.28); RED CELL DISTRIBUTION WIDTH 17.4 % (11.5-14.0); SEGMENTED NEUTROPHILS % (AUTO) 70.8 % (42-78)
[2016-11-10 07:44] LABS: HEMOGLOBIN 6.9 g/dL (12.0-15.5)
[2016-11-10] MEDS ORDERED: NORMAL SALINE 250 ML IV PRN ×2 (07:49)
[2016-11-10] MEDS ORDERED: TORSEMIDE 20 MG TABLET PO ONE ×2 (07:51)
--- NOTE | 2016-11-10 11:06 | ER Document Report ---
Doctor's Note Notes: 11/10/16 11:05 Patient vital signs still remained stable. Patient is still currently waiting for transfer. Notified that stat patient's CBC did return with a hemoglobin of 6.9. Will continue on with transfusion 2 more units with torsemide in between. Home medications were added will hold off on any blood pressure medications at this time. Patient's continued to be nothing by mouth except for meds
[2016-11-10] MEDS ORDERED: PANTOPRAZOLE SODIUM 40 MG VIAL IV SCH (11:15)
[2016-11-10 11:24] LABS: ANION GAP 13 (5-19); BLOOD UREA NITROGEN 62 mg/dL (7-20); CALCIUM 8.5 mg/dL (8.4-10.2); CARBON DIOXIDE 32 mmol/L (22-30); CHLORIDE 96 mmol/L (98-107); CREATININE RESULT 1.56 mg/dL (0.52-1.25); GLUCOSE 87 mg/dL (75-110); SODIUM 140.7 mmol/L (137-145)
[2016-11-10 11:26] LABS: POTASSIUM 2.8 mmol/L (3.6-5.0)
[2016-11-10] MEDS ORDERED: (PENDING PHARMACY ID) (Ondansetron Hcl [Zofran] 4 MG) PO PRN (12:12)
[2016-11-10] MEDS ORDERED: ALBUTEROL SULFATE 0.083% NEB 2.5 MG/3 ML AMPUL NEB PRN (12:12)
[2016-11-10] MEDS ORDERED: GABAPENTIN 300 MG CAPSULE PO PRN (12:23)
[2016-11-10] MEDS ORDERED: ONDANSETRON 4 MG TAB.RAPDIS PO PRN (12:23)
[2016-11-10] MEDS ORDERED: GABAPENTIN 300 MG CAPSULE PO ONE (17:15)
[2016-11-10] MEDS ORDERED: HYDROCODONE/ACETAMINOPHEN 5-325 MG TABLET PO ONE (17:16)
[2016-11-10 19:39] VITALS: BP 174/66
[2016-11-10 19:56] LABS: ABSOLUTE EOSINOPHILS # (AUTO) 0.1 10^3/uL (0.0-0.6); ABSOLUTE LYMPHOCYTES (AUTO) 0.3 10^3/uL (0.5-4.7); ABSOLUTE MONOCYTES (AUTO) 0.3 10^3/uL (0.1-1.4); ABSOLUTE NEUT (AUTO) 2.8 10^3/uL (1.7-8.2); BASOPHILS % (AUTO) 1.1 % (0-2); EOSINOPHILS % (AUTO) 3.5 % (0-6); HEMATOCRIT 28.1 % (36.0-47.0); HGB HCT DIFFERENCE -0.5; LYMPHOCYTES % (AUTO) 8.7 % (13-45); MEAN CORPUSCULAR HEMOGLOBIN 28.7 pg (27.0-33.4); MEAN CORPUSCULAR HGB CONC 32.8 g/dL (32.0-36.0); MEAN CORPUSCULAR VOLUME 88 fl (80-97); MONOCYTES % (AUTO) 8.2 % (3-13); RED BLOOD COUNT 3.21 10^6/uL (3.72-5.28); RED CELL DISTRIBUTION WIDTH 16.3 % (11.5-14.0); SEGMENTED NEUTROPHILS % (AUTO) 78.5 % (42-78); WHITE BLOOD COUNT 3.6 10^3/uL (4.0-10.5)
[2016-11-10 20:02] LABS: HEMOGLOBIN 9.2 g/dL (12.0-15.5)
--- NOTE | 2016-11-10 21:23 | ER Document Report ---
Doctor's Note Notes: 11/10/16 19:22 Patient resting comfortably, vital signs are stable, no complaints at present time, EMS crews in the emergency room to transport patient to tertiary care center, patient is stable for transfer
== END 2016-11-10 19:51 | disposition short-term general hospital (02) ==
LOC: ER 15:11
DX: D64.89 Other specified anemias (principal); K92.1 Melena; R07.9 Chest pain, unspecified; R06.02 Shortness of breath; I48.91 Unspecified atrial fibrillation; I50.9 Heart failure, unspecified; E78.00 Pure hypercholesterolemia, unspecified; I11.0 Hypertensive heart disease with heart failure; J44.9 Chronic obstructive pulmonary disease, unspecified; K21.9 Gastro-esophageal reflux disease without esophagitis; Z87.442 Personal history of urinary calculi; Z95.1 Presence of aortocoronary bypass graft; Z91.040 Latex allergy status; Z88.2 Allergy status to sulfonamides; I25.2 Old myocardial infarction
CPT/HCPCS: 93005; 99285; 96365; 96366; 86900; 86901; 36415; 36430; 86850; 85025; 85610; 82272; 80048; 80053; 81001; 86920; 93010; P9016; A9270 ×5; C9113; J3480; J7050; S0164

== ENCOUNTER 2016-11-23 16:42 | Emergency (ER) | payer MEDICARE, MEDICAID | END 2016-11-23 17:30 | disposition left against medical advice (07) | LOC: ER 16:42 | DX: Z53.21 Procedure and treatment not carried out due to patient leaving prior to being seen by health care provider (principal) ==

== ENCOUNTER 2017-07-16 00:08 | Emergency (ER) | payer MEDICARE, MEDICAID ==
[2017-07-16 00:31] VITALS: BP 135/48
--- NOTE | 2017-07-16 01:09 | ER Document Report ---
ED General - General Chief Complaint: Other Stated Complaint: POST SURGICAL COMPLICATION Time Seen by Provider: 07/16/17 00:42 Notes: 9-year-old female with ascites secondary to pulmonary hypertension who gets regular paracentesis presents with leaking from her left abdominal paracentesis site which began about 3 hours ago, 2 hours after she had her paracentesis done. I took off 8-1/2 L, gave her 3 bottles of albumin, but did not apply Dermabond as the do usually. She does not have any abdominal pain or fever. Baseline cough and shortness of breath is unchanged. TRAVEL OUTSIDE OF THE [place] IN LAST 30 DAYS: No - Related Data Allergies/Adverse Reactions: Heparin Analogues [Heparin Agents] Allergy (Verified 11/10/16 08:03) latex [Latex] Allergy (Verified 11/10/16 08:03) Sulfa (Sulfonamide Antibiotics) Allergy (Verified 11/10/16 08:03) Past Medical History - General Information source: Patient - Social History Smoking Status: Never Smoker Family History: CAD, Hypertension - Past Medical History Cardiac Medical History: Reports: Hx Atrial Fibrillation, Hx Congestive Heart Failure, Hx Coronary Artery Disease, Hx Heart Attack - x2, stents x6, Hx Hypercholesterolemia, Hx Hypertension Pulmonary Medical History: Reports: Hx Bronchitis, Hx COPD Renal/ Medical History: Reports: Hx Kidney Stones. Denies: Hx Peritoneal Dialysis GI Medical History: Reports: Hx Gastroesophageal Reflux Disease Musculoskeltal Medical History: Reports Hx Arthritis Psychiatric Medical History: Denies: Hx Depression Past Surgical History: Reports: Hx Abdominal Surgery - GIB fixation x2, Hx Appendectomy, Hx Cardiac Catheterization, Hx Cardiac Surgery - CABG, Hx Coronary Artery Bypass Graft, Hx Coronary Stent, Hx Vascular Surgery - 7 stents - Immunizations Immunizations up to date: No Hx Diphtheria, Pertussis, Tetanus Vaccination: No Hx Pneumococcal Vaccination: 04/25/15 Review of Systems - Review of Systems Notes: REVIEW OF SYSTEMS GEN: Denies fever, chills, weight loss ENT: Denies sore throat, nasal discharge, ear pain EYES: Denies blurry vision, eye pain, discharge CV: Denies chest pain, palpitations, edema RESP: Cough shortness of breath GI: Denies abdominal pain, nausea, vomiting, diarrhea. Abdominal distention and leaking. MSK: Denies joint pain/swelling, edema, SKIN: Denies rash, skin lesions LYMPH: Denies swollen glands/lymph nodes NEURO: Denies headache, focal weakness or numbness, dizziness PSYCH: Denies depression, suicidal or homicidal ideation PHYSICAL EXAMINATION General: No acute distress, well-nourished Head: Atraumatic, normocephalic ENT: Mouth normal, oropharynx moist, no exudates or tonsillar enlargement Eyes: Conjunctiva normal, pupils equal, lids normal Neck: No JVD, supple, no guarding CVS: Normal pulses in the radial normal cap refill Resp: No distress, wet cough, normal respiratory rate GI: Distended but soft, leaking from the left mid quadrant paracentesis site without blood. No tenderness. Ext: No deformities,chronic pinkish colored edema bilaterally unchanged from baseline Back: No CVA or midline TTP Skin: No rash, warm Lymphatic: No lymphadeopathy noted Neuro: Awake, alert. Face symmetric. GCS 15. Physical Exam - Vital signs Vitals: Temp Pulse Resp BP Pulse Ox 97.2 F 93 20 135/48 H 100 07/16/17 00:21 07/16/17 00:21 07/16/17 00:21 07/16/17 00:21 07/16/17 00:21 Course - Re-evaluation Re-evalutation: 07/16/17 01:08 Slow leak from paracentesis site. Did not get glued. She is already received what I considered to be the maximum volume of paracentesis with albumin replacement. I dissolved her Dermabond with nail panamanian remover and bacitracin. I reapplied Dermabond. There was no further leaking. 07/16/17 01:13 I have discussed with the patient there likely diagnosis, aftercare plan, follow -up plans and my usual and customary return precautions. They verbalized understanding of this. - Vital Signs Vital signs: Temp Pulse Resp BP Pulse Ox 97.2 F 93 20 135/48 H 100 07/16/17 00:21 07/16/17 00:21 07/16/17 00:21 07/16/17 00:21 07/16/17 00:21 Procedures - Laceration/Wound Repair Left Mid- Abdomen Time completed: 01:12 Wound length (cm): 0.2 Wound's Depth, Shape: Superficial, Linear Laceration pre-procedure: Other Wound Repaired With: Dermabond - 34 layers of Dermabond applied. Post-procedure wound care: Sterile dressing applied Discharge - Discharge Clinical Impression: Ascites Qualifiers: Ascites type: other type Qualified Code(s): R18.8 - Other ascites Condition: Good Disposition: HOME, SELF-CARE Additional Instructions: You were seen in the ER for leaking from the paracentesis site. This is likely because there is no glue applied. We did not feel safe removing further fluid from the abdomen. The wound was re-glued. Please follow-up with your specialists as prescribed. If you experience further leaking please return to the ER. Please return also for fever abdominal pain.
== END 2017-07-16 01:15 | disposition home or self-care (01) ==
LOC: ER 00:08
PROC: 0HQ7XZZ Repair Abdomen Skin, External Approach (ICD-10-PCS; principal; 2017-07-16)
DX: R18.8 Other ascites (principal); L76.82 Other postprocedural complications of skin and subcutaneous tissue
CPT/HCPCS: 12001; G0168; 99283

== ENCOUNTER 2017-07-25 19:05 | Emergency (ER) | payer MEDICARE, MEDICAID ==
--- NOTE | 2017-07-25 21:40 | ER Document Report ---
ED General - General Chief Complaint: Abdominal Problem Stated Complaint: ABDOMINAL PAIN Time Seen by Provider: 07/25/17 21:15 TRAVEL OUTSIDE OF THE [place] IN LAST 30 DAYS: No - HPI Patient complains to provider of: Post procedure complication Notes: Patient has a history of ascites and gets regular paracentesis patient states had a paracentesis on started leaking on Wednesday continues to leak at this time. Patient requesting Dermabond to the site is that this is happened before. Otherwise patient has no other complaints denies fevers chills nausea vomiting dental pain. - Related Data Allergies/Adverse Reactions: Heparin Analogues [Heparin Agents] Allergy (Verified 07/25/17 19:10) latex [Latex] Allergy (Verified 07/25/17 19:10) Sulfa (Sulfonamide Antibiotics) Allergy (Verified 07/25/17 19:10) Past Medical History - Social History Smoking Status: Current Every Day Smoker Chew tobacco use (# tins/day): No Frequency of alcohol use: None Drug Abuse: None Family History: CAD, Hypertension Patient has suicidal ideation: No Patient has homicidal ideation: No - Past Medical History Cardiac Medical History: Reports: Hx Atrial Fibrillation, Hx Congestive Heart Failure, Hx Coronary Artery Disease, Hx Heart Attack - x2, stents x6, Hx Hypercholesterolemia, Hx Hypertension Pulmonary Medical History: Reports: Hx Bronchitis, Hx COPD Renal/ Medical History: Reports: Hx Kidney Stones. Denies: Hx Peritoneal Dialysis GI Medical History: Reports: Hx Gastroesophageal Reflux Disease Musculoskeltal Medical History: Reports Hx Arthritis Psychiatric Medical History: Denies: Hx Depression Past Surgical History: Reports: Hx Abdominal Surgery - GIB fixation x2, Hx Appendectomy, Hx Cardiac Catheterization, Hx Cardiac Surgery - CABG, Hx Coronary Artery Bypass Graft, Hx Coronary Stent, Hx Vascular Surgery - 7 stents - Immunizations Immunizations up to date: No Hx Diphtheria, Pertussis, Tetanus Vaccination: No Hx Pneumococcal Vaccination: 04/25/15 Review of Systems - Review of Systems Constitutional: No symptoms reported EENT: No symptoms reported Cardiovascular: No symptoms reported Respiratory: No symptoms reported Gastrointestinal: Other - Paracentesis site leaking Genitourinary: No symptoms reported Female Genitourinary: No symptoms reported Musculoskeletal: No symptoms reported Skin: No symptoms reported Hematologic/Lymphatic: No symptoms reported Neurological/Psychological: No symptoms reported Physical Exam - Vital signs Vitals: Temp Pulse Resp BP Pulse Ox 97.8 F 85 12 138/49 H 98 07/25/17 19:27 07/25/17 19:27 07/25/17 19:27 07/25/17 19:27 07/25/17 19:27 Interpretation: Normal - General General appearance: Appears well, Alert - HEENT Head: Normocephalic, Atraumatic Eyes: Normal Pupils: PERRL - Respiratory Respiratory status: No respiratory distress Chest status: Nontender Breath sounds: Normal Chest palpation: Normal - Cardiovascular Rhythm: Regular Heart sounds: Normal auscultation Murmur: No - Abdominal Inspection: Normal Distension: No distension Bowel sounds: Normal Tenderness: Nontender Organomegaly: No organomegaly Notes: Paracentesis site leaking clear ascitic fluid - Back Back: Normal, Nontender - Extremities General upper extremity: Normal inspection, Nontender, Normal color, Normal ROM , Normal temperature General lower extremity: Normal inspection, Nontender, Edema - 2 +, Normal color , Normal ROM, Normal temperature, Normal weight bearing. No: Jessy's sign - Neurological Neuro grossly intact: Yes Cognition: Normal Orientation: AAOx4 [place] Coma Scale Eye Opening: Spontaneous [place] Coma Scale Verbal: Oriented [place] Coma Scale Motor: Obeys Commands [place] Coma Scale Total: 15 Speech: Normal Motor strength normal: LUE, RUE, LLE, RLE Sensory: Normal - Psychological Associated symptoms: Normal affect, Normal mood - Skin Skin Temperature: Warm Skin Moisture: Dry Skin Color: Normal Course - Re-evaluation Re-evalutation: 07/26/17 02:36 Dermabond over the paracentesis site to stop the ascitic fluid leak. This was successful patient discharged home - Vital Signs Vital signs: Temp Pulse Resp BP Pulse Ox 98.5 F 77 18 145/90 H 98 07/25/17 21:45 07/25/17 21:45 07/25/17 21:45 07/25/17 21:45 07/25/17 21:45 Discharge - Discharge Clinical Impression: Leaking paracentesis site Condition: Good Disposition: ADMITTED OBSERVATION Additional Instructions: Dermabond was placed over your leaking paracentesis site. Please keep the area padded if the glue is removed with the site more likely leak again. I would discussed this with your provider about continuing leaking after paracentesis sites.
[2017-07-25 21:46] VITALS: BP 145/90
== END 2017-07-25 21:46 | disposition home or self-care (01) ==
LOC: ER 19:05
PROC: 0HQ7XZZ Repair Abdomen Skin, External Approach (ICD-10-PCS; principal; 2017-07-25)
DX: T81.89XA Other complications of procedures, not elsewhere classified, initial encounter (principal); K66.8 Other specified disorders of peritoneum; R10.9 Unspecified abdominal pain; F17.200 Nicotine dependence, unspecified, uncomplicated; Z98.890 Other specified postprocedural states
CPT/HCPCS: 99283

== ENCOUNTER 2018-05-30 21:06 | Emergency (ER) | payer MEDICARE, MEDICAID ==
[2018-05-30] MEDS ORDERED: NORMAL SALINE 500 ML IV ONE (21:11)
--- NOTE | 2018-05-30 21:42 | RADIOLOGY REPORT (SQ) ---
EXAM DESCRIPTION: XR CHEST 1 VIEW COMPLETED DATE/TME: 05/30/2018 21:07 CLINICAL HISTORY: 73 years, Female, stroke alert Findings: Heart is moderately enlarged. Status post median sternotomy. No consolidation or pleural effusion. No pulmonary edema or pneumothorax. IMPRESSION: No acute disease.
--- NOTE | 2018-05-30 21:44 | RADIOLOGY REPORT (SQ) ---
CT HEAD WITHOUT IV CONTRAST HISTORY: Stroke alert. Altered mental status. COMPARISON: None. TECHNIQUE: CT scan of the brain without IV contrast. This exam was performed according to our departmental dose-optimization program, which includes automated exposure control, adjustment of the mA and/or kV according to patient size and/or use of iterative reconstruction technique. FINDINGS: Diffuse involutional changes are present.. Enlarged bilateral frontoparietal extra-axial space. No acute infarction or intracranial hemorrhage is identified. No air-fluid levels in the paranasal sinuses. Calvarium is intact. IMPRESSION: No evidence of acute infarction. MRI is more sensitive for the evaluation of early stroke and may be performed if there is high clinical concern.
[2018-05-30 21:56] LABS: HEMATOCRIT 27.9 % (36.0-47.0); HEMOGLOBIN 9.2 g/dL (12.0-15.5); MEAN CORPUSCULAR HEMOGLOBIN 26.4 pg (27.0-33.4); MEAN CORPUSCULAR HGB CONC 33.1 g/dL (32.0-36.0); MEAN CORPUSCULAR VOLUME 80 fl (80-97); PLATELET COUNT 128 10^3/uL (150-450); RED BLOOD COUNT 3.49 10^6/uL (3.72-5.28); RED CELL DISTRIBUTION WIDTH 17.3 % (11.5-14.0); WHITE BLOOD COUNT 4.5 10^3/uL (4.0-10.5)
[2018-05-30 21:57] LABS: INTERNATIONAL RATION (INR) 1.16; PROTHROMBIN TIME 15.4 SEC (11.4-15.4)
[2018-05-30 21:58] LABS: PARTIAL THROMBOPLASTIN TIME 31.4 SEC (23.5-35.8)
--- NOTE | 2018-05-30 22:04 | RADIOLOGY REPORT (SQ) ---
CT HEAD/NECK ANGIOGRAPHY WITHOUT THEN WITH IV CONTRAST HISTORY: Stroke alert. Altered mental status. COMPARISON: None. TECHNIQUE: CT angiogram of the head and neck with contrast. 3D reformatted reconstructions were performed on an independent workstation. This exam was performed according to our departmental dose-optimization program, which includes automated exposure control, adjustment of the mA and/or kV according to patient size and/or use of iterative reconstruction technique. FINDINGS: NECK: Patent flow opacification of the aortic arch origin, right brachiocephalic, left common carotid, and left subclavian arteries. The bilateral vertebral artery origins are normal. Marked atherosclerotic calcifications at the left carotid bifurcation. Patent flow opacification through the bilateral common carotid arteries, right carotid bifurcation, cervical internal/external carotid, and vertebral arteries. BRAIN: Patent flow opacification through anterior circulation (bilateral petrous/cavernous/supraclinoid internal carotid arteries, anterior and middle cerebral arteries), posterior circulation (vertebral-basilar, posterior-inferior cerebellar, anterior-inferior cerebellar, superior cerebellar, and posterior cerebral arteries), and distal intracranial vasculature. Patent flow opacification through a complete [id number] with a patent anterior communicating artery and bilateral posterior communicating arteries. No evidence of occlusive thrombus, dissection, or vascular malformation. IMPRESSION: Marked atherosclerotic calcifications at the left carotid bifurcation. Consider Doppler imaging for complete evaluation. No evidence of occlusive thrombus in the [place].
--- NOTE | 2018-05-30 22:04 | RADIOLOGY REPORT (SQ) ---
CT HEAD/NECK ANGIOGRAPHY WITHOUT THEN WITH IV CONTRAST HISTORY: Stroke alert. Altered mental status. COMPARISON: None. TECHNIQUE: CT angiogram of the head and neck with contrast. 3D reformatted reconstructions were performed on an independent workstation. This exam was performed according to our departmental dose-optimization program, which includes automated exposure control, adjustment of the mA and/or kV according to patient size and/or use of iterative reconstruction technique. FINDINGS: NECK: Patent flow opacification of the aortic arch origin, right brachiocephalic, left common carotid, and left subclavian arteries. The bilateral vertebral artery origins are normal. Marked atherosclerotic calcifications at the left carotid bifurcation. Patent flow opacification through the bilateral common carotid arteries, right carotid bifurcation, cervical internal/external carotid, and vertebral arteries. BRAIN: Patent flow opacification through anterior circulation (bilateral petrous/cavernous/supraclinoid internal carotid arteries, anterior and middle cerebral arteries), posterior circulation (vertebral-basilar, posterior-inferior cerebellar, anterior-inferior cerebellar, superior cerebellar, and posterior cerebral arteries), and distal intracranial vasculature. Patent flow opacification through a complete [id number] with a patent anterior communicating artery and bilateral posterior communicating arteries. No evidence of occlusive thrombus, dissection, or vascular malformation. IMPRESSION: Marked atherosclerotic calcifications at the left carotid bifurcation. Consider Doppler imaging for complete evaluation. No evidence of occlusive thrombus in the [place].
[2018-05-30 22:15] LABS: ABSOLUTE LYMPHOCYTES# (MANUAL) 0.2 10^3/uL (0.5-4.7); ABSOLUTE MONOCYTES # (MANUAL) 0.2 10^3/uL (0.1-1.4); ABSOLUTE NEUTROPHILS# (MANUAL) 4.1 10^3/uL (1.7-8.2); BASOPHILS % (MANUAL) 0 % (0-2); EOSINOPHILS % (MANUAL) 0 % (0-6); LYMPHOCYTES % (MANUAL) 5 % (13-45); MONOCYTES % (MANUAL) 4 % (3-13); SEGMENTED NEUTROPHILS % (MAN) 91 % (42-78); TOTAL CELLS COUNTED 100
[2018-05-30 22:16] LABS: OVALOCYTES 1+
[2018-05-30 22:17] LABS: ANISOCYTOSIS 1+; PLATELET COMMENT DECREASED; POIKILOCYTOSIS 1+
[2018-05-30 22:22] LABS: ALANINE AMINOTRANSFERASE 43 U/L (9-52); ALBUMIN 2.7 g/dL (3.5-5.0); ALKALINE PHOSPHATASE 93 U/L (38-126); ANION GAP 17 (5-19); ASPARTATE AMINO TRANSFERASE 48 U/L (14-36); BILIRUBIN,DIRECT 0.2 mg/dL (0.0-0.4); BILIRUBIN,TOTAL 0.2 mg/dL (0.2-1.3); BLOOD UREA NITROGEN 66 mg/dL (7-20); CALCIUM 7.4 mg/dL (8.4-10.2); CARBON DIOXIDE 22 mmol/L (22-30); CHLORIDE 99 mmol/L (98-107); CREATINE KINASE 45 U/L (30-135); GLUCOSE 93 mg/dL (75-110); POTASSIUM 3.6 mmol/L (3.6-5.0); TOTAL PROTEIN 5.4 g/dL (6.3-8.2)
[2018-05-30 22:31] LABS: CREATINE KINASE MB 1.69 ng/mL (<4.55)
[2018-05-30 22:35] LABS: TROPONIN I 1.04 ng/mL
[2018-05-30] MEDS ORDERED: ASPIRIN 300 MG SUPP, RECTAL PR ONE (22:54)
[2018-05-30] MEDS ORDERED: LIDOCAINE 5% (700 MG) TRANSDERMAL ADH..PATCH TP ONE (23:16)
--- NOTE | 2018-05-31 00:06 | ER Document Report ---
ED General - General Chief Complaint: S/S of Possible Stroke Stated Complaint: POSSIBLE STROKE Time Seen by Provider: 05/30/18 21:11 TRAVEL OUTSIDE OF THE [place] IN LAST 30 DAYS: No - HPI Patient complains to provider of: Stroke Notes: Patient coming in from home last known well was at 530 members patient states he dinner went to lay down for nap woke up around 830 and was unable to get out of the chair because of weakness of the upper and lower extremities on the left side. Patient also was noted to have garbled slurred speech and left-sided facial drooping. 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 Patient did admit to having a history of atrial fibrillation however is not on any anticoagulation because of massive GI bleeds requiring daily transfusions that happened in the past. Patient also has a history of chronic cellulitis of the left leg and CHF. Patient family though does cooperate to the patient's symptoms are new. Patient was met upon her arrival here in taken directly to the CT scanner. Because of her symptoms CT of the head and CTa head and neck were performed GCS of 15 patient is maintaining her airway - Related Data Allergies/Adverse Reactions: Heparin Analogues [Heparin Agents] Allergy (Verified 07/25/17 19:10) latex [Latex] Allergy (Verified 07/25/17 19:10) Sulfa (Sulfonamide Antibiotics) Allergy (Verified 07/25/17 19:10) Past Medical History - Social History Smoking Status: Current Every Day Smoker Family History: CAD, Hypertension Patient has suicidal ideation: No Patient has homicidal ideation: No - Past Medical History Cardiac Medical History: Reports: Hx Atrial Fibrillation, Hx Congestive Heart Failure, Hx Coronary Artery Disease, Hx Heart Attack - x2, stents x6, Hx Hypercholesterolemia, Hx Hypertension Pulmonary Medical History: Reports: Hx Bronchitis, Hx COPD Renal/ Medical History: Reports: Hx Kidney Stones. Denies: Hx Peritoneal Dialysis GI Medical History: Reports: Hx Gastroesophageal Reflux Disease Musculoskeletal Medical History: Reports Hx Arthritis Psychiatric Medical History: Denies: Hx Depression Past Surgical History: Reports: Hx Abdominal Surgery - GIB fixation x2, Hx Appendectomy, Hx Cardiac Catheterization, Hx Cardiac Surgery - CABG, Hx Coronary Artery Bypass Graft, Hx Coronary Stent, Hx Vascular Surgery - 7 stents - Immunizations Immunizations up to date: No Hx Diphtheria, Pertussis, Tetanus Vaccination: No Hx Pneumococcal Vaccination: 04/25/15 Review of Systems - Review of Systems Constitutional: No symptoms reported EENT: No symptoms reported Cardiovascular: No symptoms reported Respiratory: No symptoms reported Gastrointestinal: No symptoms reported Genitourinary: No symptoms reported Female Genitourinary: No symptoms reported Musculoskeletal: No symptoms reported Skin: No symptoms reported Hematologic/Lymphatic: No symptoms reported Neurological/Psychological: Other - Facial drooping slurred speech left upper left lower extremity weakness Physical Exam - Vital signs Vitals: Resp 13 05/30/18 21:36 Interpretation: Normal - General General appearance: Appears well, Alert - HEENT Head: Normocephalic, Atraumatic Eyes: Normal Pupils: PERRL - Respiratory Respiratory status: No respiratory distress Chest status: Nontender Breath sounds: Normal Chest palpation: Normal - Cardiovascular Rhythm: Irregularly irregular Heart sounds: Normal auscultation Murmur: No - Abdominal Inspection: Normal Distension: No distension Bowel sounds: Normal Tenderness: Nontender Organomegaly: No organomegaly - Back Back: Normal, Nontender - Extremities General upper extremity: Normal inspection, Nontender, Normal color, Normal ROM , Normal temperature General lower extremity: Normal inspection, Nontender, Normal color, Normal ROM , Normal temperature, Normal weight bearing. No: Jessy's sign - Neurological Neuro grossly intact: Yes Cognition: Normal Orientation: AAOx4 Alpine Coma Scale Eye Opening: Spontaneous Alpine Coma Scale Verbal: Oriented Alpine Coma Scale Motor: Obeys Commands Jeff Coma Scale Total: 15 Speech: Normal Sensory: Normal Notes: Please see NIH score - Psychological Associated symptoms: Normal affect, Normal mood - Skin Skin Temperature: Warm Skin Moisture: Dry Skin Color: Normal Course - Re-evaluation Re-evalutation: 05/31/18 01:04 Concern for underlying acute CVA. CT head without contrast negative CTA of the head stenosis during to thrombus. Did discuss with the neurologist Dr. Sexton at [facility] because of the patient's timing at that she is currently out of the 3-hour window for TPA and history of significant GI bleeding in the past with new information of weekly paracentesis that the family is now given would not recommend TPA at this time. I did go over the criteria for the patient and risk and benefits of TPA patient states understanding about the bleeding risk and agrees with this current treatment plan. Because of no acute thrombus seen on CTA also not a candidate for possible thrombectomy at this time according to Dr. Sexton. Recommended admission to the hospitalist service. Patient's laboratory studies did also show an elevation in troponin patient remained chest pain-free EKG did not show any acute changes. Dr. Douglas hospitalist recommended aspirin because the patient failed her swallow screen this will have to be given rectally however patient is refusing at this time. Otherwise patient has been stable during her stay here in the ER. Transport is currently at bedside will be transferred to tertiary care facility for acute CVA and elevated troponin - Vital Signs Vital signs: Temp Pulse Resp BP Pulse Ox 98.2 F 86 19 154/73 H 93 05/31/18 00:57 05/31/18 00:00 05/31/18 00:47 05/31/18 00:47 05/31/18 00:00 - Laboratory Result Diagrams: 05/30/18 21:43 05/30/18 21:43 Laboratory results interpreted by me: 05/30/18 05/30/18 21:43 21:43 RBC 3.49 L Hgb 9.2 L Hct 27.9 L MCH 26.4 L RDW 17.3 H Plt Count 128 L Seg Neuts % (Manual) 91 H Lymphocytes % (Manual) 5 L Abs Lymphs (Manual) 0.2 L BUN 66 H Creatinine 2.83 H Est GFR ( Amer) 20 L Est GFR (Non-Af Amer) 16 L Calcium 7.4 L AST 48 H Total Protein 5.4 L Albumin 2.7 L Critical Care Note - Critical Care Note Total time excluding time spent on procedures (mins): 60 Comments: Multiple evaluation patient with acute CVA elevated troponin discussing case with tertiary care facility neurologist and hospitalist. Discharge - Discharge Clinical Impression: Congestive heart failure, Atrial fibrillation, Chronic renal failure, COPD ( chronic obstructive pulmonary disease), Acute CVA (cerebrovascular accident), Left upper lower extremity weakness, Facial droop, Slurred speech, Troponin level elevated Condition: Stable Disposition: [facility] ED NIH Stroke Scale - NIH Stroke Scale *: 1. NIH scale should be completed with appropriate accompanying assessment tools. *: 2. The NIH should reflect what the patient is capable of doing and should not be coached by the clinician. 1a. Level of Consciousness: 0=Alert;keenly responsive -: 1=Drowsy -: 2=Obtunded -: 3=Coma/unresponsive or reflex to noxious stimuli. 1a. Responses: 0 1b. Orientation Questions: a. What month is it? -: b. How old are you? -: 0=Answers both questions correctly. -: 1=Answers one question correctly or patient is intubated or has orotracheal trauma. -: 2=Answers neither question correctly. 1b. Responses: 0 1c. Response to commands: a. Open and close eyes? -: b. Trolley Car Overhauler and release hand? -: Credit is given despite weakness. Demonstration of task is permitted. Substitute command if hands cannot be used. -: 0=Performs both tasks correctly -: 1=Performs one task correctly -: 2=Performs neither task correctly 1c. Responses: 0 2. Gaze: Establish eye contact and instruct patient to "Follow my finger" -: 0=Normal -: 1=Partial gaze palsy. Gaze is abnormal in one or both eyes, but where forced deviation or total gaze paresis is not present. -: 2=Forced deviation or total gaze paresis. 2. Responses: 0 3. Visual Amaya: Sees fingers in all four quadrants. -: 0=No visual loss. -: 1=Partial hemianopsia. -: 2=Complete hemianopsia. -: 3=Bilateral hemianopsia (including Cortical blindness) 3. Responses: 0 4. Facial Movement: Instruct patient to: -: a. Show me your teeth -: b. Raise your eyebrows -: c. Close your eyes -: d. Smile -: 0=Normal symmetrical movement -: 1=Minor paralysis (flattened nasolabial fold, asymmetry on smiling). -: 2=Partial paralysis (total or near total paralysis of lower face). -: 3=Complete paralysis of upper and lower face 4. Responses: 2 5. Motor functions (left arm): Alternate sides and extend each arm with palms down (90 degrees if sitting or 45 degrees for supine). -: 0=No drift;limb holds for full 10 seconds. -: 1=Drift; limb holds but drifts down before full 10 seconds, but does not hit bed. -: 2=Some effort against gravity; limb cannot get to or maintain position. -: 3=No effort against gravity; limb falls. -: 4=No movement. -: UN=Amputation, joint fusion, explain in comments. 5. Responses (left arm): 2 5. Motor Functions (right arm): Alternate sides and extend each arm with palms down (90 degrees if sitting or 45 degrees for supine). -: 0=No drift;limb holds for full 10 seconds. -: 1=Drift; limb holds but drifts down before full 10 seconds, but does not hit bed. -: 2=Some effort against gravity; limb cannot get to or maintain position. -: 3=No effort against gravity; limb falls. -: 4=No movement. -: UN=Amputation, joint fusion, explain in comments. 5. Responses (right arm): 0 6. Motor Functions (left leg): With patient lying supine, alternate sides and extend each leg (30 degrees always while supine). -: 0=No drift, leg holds position for full 5 seconds -: 1=Drift; leg falls before full 5 seconds but does not hit bed. -: 2=Some effort against gravity, leg falls to bed but some effort against gravity. -: 3=No effort against gravity, leg falls to bed immediately. -: 4=No movement. -: UN=Amputation, joint fusion; explain in comments. 6. Responses (left leg): 3 6. Motor Functions (right leg): With patient lying supine, alternate sides and extend each leg (30 degrees always while supine). -: 0=No drift, leg holds position for full 5 seconds -: 1=Drift; leg falls before full 5 seconds but does not hit bed. -: 2=Some effort against gravity, leg falls to bed but some effort against gravity. -: 3=No effort against gravity, leg falls to bed immediately. -: 4=No movement. -: UN=Amputation, joint fusion; explain in comments. 6. Responses (right leg): 0 7. Limb Ataxia: With eyes open instruct patient to: -: a. "Touch your finger to your nose". -: b. "Touch your heel to your otoole" -: 0=Absent -: 1=Present in one limb. -: 2=Present in two limbs. -: UN=Amputation or joint fusion; explain in comments. 7. Responses: 0 8. Sensory: Test sensation using pinprick or noxious stimuli. Test as many body parts as possible. -: 0=Normal;no sensory loss -: 1=Mile to moderate sensory loss (patient feels pin prick but is less sharp on affected side). -: 2=Severe or total sensory loss. 8. Responses: 0 9. Best Language: Instruct patient to: -: a. "Describe what you see in this picture." -: b. "Name the items in this picture." -: c. "Read these sentences." -: 0=No aphasia, normal -: 1=Mild to moderate aphasia. -: 2=Severe aphasia -: 3=Mute, global aphasia, no usable speech or auditory comprehension. 9. Responses: 1 10. Articulation, Dysarthia: Instruct patient to: -: "Read these words" or "Repeat these words" -: 0=Normal -: 1=Mild to moderate; patient may slur some words but can be understood without difficulty. -: 2=Severe; patients speech so slurred as to be unintelligible in the absence of dysphasia. -: UN=Intubated or other physical barrier, explain in comments. 10. Responses: 1 11. Extinction or inattention: 0=No abnormality -: 1= Visual, tactile, auditory, spatial, or personal inattention or extinction to bilateral simulation in one or the sensory modalities. -: 2=Profound bre-inattention or bre-inattention to more than one modality; does not recognize own hand. 11. Responses: 0 Total Score: 9
[2018-05-31 00:57] VITALS: BP 154/73
--- NOTE | 2018-05-31 07:28 | EKG REPORT ---
SEVERITY:- ABNORMAL ECG - ATRIAL FIBRILLATION, V-RATE 62-86 INCOMPLETE RIGHT BUNDLE BRANCH BLOCK NONSPECIFIC ST-T CHANGES- INFERIOR LEADS : Confirmed by: Adrian Diallo MD 31-May-2018 07:27:38
== END 2018-05-31 01:01 | disposition short-term general hospital (02) ==
LOC: ER 21:06
DX: I63.9 Cerebral infarction, unspecified (principal); I13.0 Hypertensive heart and chronic kidney disease with heart failure and stage 1 through stage 4 chronic kidney disease, or unspecified chronic kidney disease; N18.9 Chronic kidney disease, unspecified; I50.9 Heart failure, unspecified; I48.91 Unspecified atrial fibrillation; J44.9 Chronic obstructive pulmonary disease, unspecified; M62.81 Muscle weakness (generalized); R79.89 Other specified abnormal findings of blood chemistry; R47.81 Slurred speech; R29.810 Facial weakness; F17.200 Nicotine dependence, unspecified, uncomplicated; I25.10 Atherosclerotic heart disease of native coronary artery without angina pectoris
CPT/HCPCS: 93005; 99291; 96360; 36415; 82553; 82962; 82550; 85025; 85610; 85730; 80053; 84484; 71045; 70450; 70496; 70498; 93010; J7040